=== PATIENT | female | born 1955 | race Caucasian/White ===

== ENCOUNTER 2020-08-14 10:38 | Inpatient (IN) | payer MEDICARE, OTHER ==
[~2020-08-14] VITALS: Ht 167.6 cm; Wt 101.9 kg
[2020-08-14] MEDS ORDERED: ACETAMINOPHEN 325 MG TAB PO ONE ×2 (11:26→11:30)
[2020-08-14] MEDS ORDERED: SODIUM CHLORIDE 0.9% 1,000 ML IV ONE (11:30)
[2020-08-14 11:36] LABS: Basophils # (auto) 0.1 10 ^3/uL (0-0.2); Eosinophils # (auto) 0 10 ^3/uL (0-0.8); Lymphocytes # (auto) 0.8 10 ^3/uL (0.4-5.4)
[2020-08-14 11:37] LABS: Basophils % (auto) 0.5 % (0.0-2.0); Eosinophils % (auto) 0.2 % (0.0-7.0); Hematocrit 41.9 % (36.0-46.0); Lymphocytes % (auto) 4.7 % (10.0-50.0); Mean Corpuscular Hemoglobin 26.3 pg (28.0-32.0); Mean Corpuscular Hgb Conc. 33.3 g/dL (32.0-36.0); Mean Corpuscular Volume 78.8 fL (80.0-100.0); Monocytes # (auto) 0.6 10 ^3/uL (0-1.3); Monocytes % (auto) 3.6 % (0.0-12.0); Neutrophils # (auto) 14.5 10 ^3/uL (1.6-8.6); Nucleated Red Blood Cells % 0.1 %; Platelet Count (auto) 346 10^3/uL (140-450); Red Blood Cells 5.32 10^6/uL (4.0-5.20); Red Cell Distribution Width 16.2 % (11.8-14.3); White Blood Cell 15.9 10^3/uL (4.4-10.8)
[2020-08-14 11:42] LABS: INR 0.97 (0.9-1.15); Partial Thromboplastin Time 21.9 sec (23.0-31.2)
[2020-08-14 11:43] LABS: Albumin 3.1 g/dL (3.4-5.0); Anion Gap 8 (5-15); Blood Urea Nitrogen 21 mg/dL (7-18); Calcium 8.6 mg/dL (8.5-10.1); Carbon Dioxide 25 mmol/L (21-32); Chloride 104 mmol/L (98-107); Glucose 174 mg/dL (74-106); Potassium 3.9 mmol/L (3.5-5.1); Sodium 137 mmol/L (136-145)
[2020-08-14] MEDS ORDERED: SODIUM CHLORIDE 0.9% 1,000 ML IVB ONE (11:45)
[2020-08-14 11:48] LABS: Lactic Acid w/Reflex 2.7 mmol/L (0.4-2.0)
[2020-08-14 11:48] LABS: Alanine Aminotransferase 42 U/L (13-56); Alkaline Phosphatase 143 U/L (45-117); Aspartate Aminotransferase 61 U/L (15-37); BUN/Creatinine Ratio 18.3; Bilirubin, Total 0.4 mg/dL (0.2-1.0); GFR African American 61 mL/min; GFR Non-African American 50 mL/min; Total Protein 7.4 g/dL (6.4-8.2)
[2020-08-14 12:14] LABS: Urine Bacteria NONE SEEN /hpf (None Seen); Urine Blood 3+ /uL (Negative); Urine Mucus FEW (None Seen); Urine Specific Gravity 1.015 (1.001-1.035); Urine WBC 552 /hpf (0 - 5); Urine WBC Clumps PRESENT /hpf (None Seen)
[2020-08-14] MEDS ORDERED: cefTRIAXone 1GM/50ML D5W 50 ML IV ONE (13:30)
[2020-08-14] MEDS ORDERED: DOCUSATE SOD 100 MG CAP PO PRN (14:45)
[2020-08-14] MEDS ORDERED: MORPHINE SULF INJ 2 MG/ML SYRINGE 1ML IV PRN ×2 (14:45)
[2020-08-14] MEDS ORDERED: IPRATROPIUM BROM 0.5 MG/2.5ML INH SOL NEB PRN (14:45)
[2020-08-14] MEDS ORDERED: ALBUTEROL SULF 2.5 MG/0.5ML(0.5%) NEB SOLN NEB PRN (14:45)
[2020-08-14] MEDS ORDERED: NITROGLYCERIN 0.4 MG SL TAB SL PRN (14:45)
[2020-08-14] MEDS ORDERED: IOHEXOL 300 MG/ML 100ML BOTTLE IJ ONE (14:51)
[2020-08-14 15:02] VITALS: BP 149/68
[2020-08-14] MEDS: SODIUM CHLORIDE 0.9% 1,000 ML IV SCH ×2 (16:03→22:45)
[2020-08-14] MEDS: ONDANSETRON HCL 4 MG/2 ML VIAL IV PRN (17:22)
[2020-08-14 22:36] VITALS: BP 140/73
[2020-08-14] MEDS: metroNIDAZOLE 500MG/100ML 100 ML IV SCH (23:24)
[2020-08-14] MEDS: HYDROcodone-ACET 5/325MG TAB PO PRN (23:33)
[2020-08-15] MEDS ORDERED: VANCOMYCIN 1GM/250ML 250 ML IV ONE (02:45)
[2020-08-15] MEDS ORDERED: VANCOMYCIN PER PHARMACY 0 MG IV SCH (03:00)
[2020-08-15 05:00] VITALS: BP 137/67
[2020-08-15] MEDS: metroNIDAZOLE 500MG/100ML 100 ML IV SCH ×3 (05:42→21:41)
[2020-08-15] MEDS: HYDROcodone-ACET 5/325MG TAB PO PRN ×3 (05:46→18:42)
[2020-08-15] MEDS: SODIUM CHLORIDE 0.9% 1,000 ML IV SCH ×3 (05:51→23:42)
[2020-08-15 07:06] LABS: Basophils # (auto) 0 10 ^3/uL (0-0.2); Basophils % (auto) 0.1 % (0.0-2.0); Eosinophils # (auto) 0 10 ^3/uL (0-0.8); Hemoglobin 12.2 g/dL (12.2-16.2); Monocytes # (auto) 0.8 10 ^3/uL (0-1.3)
[2020-08-15 07:09] LABS: Hematocrit 37.7 % (36.0-46.0); Lymphocytes % (auto) 5.1 % (10.0-50.0); Mean Corpuscular Hgb Conc. 32.3 g/dL (32.0-36.0); Mean Corpuscular Volume 80.5 fL (80.0-100.0); Neutrophils # (auto) 18.4 10 ^3/uL (1.6-8.6); Neutrophils % (auto) 90.8 % (37.0-80.0); Platelet Count (auto) 247 10^3/uL (140-450); Red Blood Cells 4.68 10^6/uL (4.0-5.20); Red Cell Distribution Width 16.2 % (11.8-14.3); White Blood Cell 20.2 10^3/uL (4.4-10.8)
[2020-08-15 07:30] LABS: BUN/Creatinine Ratio 19.8; Calcium 8.1 mg/dL (8.5-10.1); Potassium 3.5 mmol/L (3.5-5.1)
[2020-08-15 09:00] VITALS: BP 119/52
[2020-08-15] MEDS: levoFLOXacin 500MG 100 ML IV SCH (09:25)
[2020-08-15] MEDS: ENOXAPARIN SOD 40 MG/0.4 ML SYRINGE SC SCH (09:25)
[2020-08-15] MEDS: ONDANSETRON HCL 4 MG/2 ML VIAL IV PRN (09:25)
[2020-08-15] MEDS ORDERED: SERT50TA PO (11:54)
[2020-08-15] MEDS ORDERED: ROSU20TA14 PO (11:54)
[2020-08-15] MEDS ORDERED: BACL20TA PO (11:54)
[2020-08-15] MEDS ORDERED: EVER10TA PO (11:54)
[2020-08-15] MEDS ORDERED: GABA600T PO (11:54)
[2020-08-15] MEDS ORDERED: POTA10TA51 PO (11:54)
[2020-08-15] MEDS ORDERED: LISI-285 PO (11:54)
[2020-08-15] MEDS ORDERED: NORT25CA PO (11:54)
[2020-08-15] MEDS ORDERED: OMEP20TA PO (11:54)
[2020-08-15 13:00] VITALS: BP 170/84
[2020-08-15] MEDS: ACETAMINOPHEN 500 MG TAB PO PRN (13:04)
[2020-08-15] MEDS: FAMOTIDINE 20 MG TAB PO SCH (13:04)
[2020-08-15 14:29] VITALS: BP_SYST 128; BP_SYST 141; BP_DIAS 57; BP_DIAS 65
[2020-08-15] MEDS: VANCOMYCIN 1GM/250ML 250 ML IV SCH (15:16)
[2020-08-15] MEDS: SERTRALINE HCL 50 MG TAB PO SCH (15:16)
[2020-08-15] MEDS: GABAPENTIN 300 MG CAP PO SCH ×2 (15:17→21:41)
[2020-08-15 17:00] VITALS: BP 147/54
[2020-08-15] MEDS: BACLOFEN 10 MG TAB PO SCH (21:41)
[2020-08-15 22:00] VITALS: BP 159/56
[2020-08-15] MEDS ORDERED: NORTRIPTYLINE HCL 25 MG CAP PO SCH (22:00)
[2020-08-16] MEDS: VANCOMYCIN 1GM/250ML 250 ML IV SCH (01:53)
[2020-08-16] MEDS: HYDROcodone-ACET 5/325MG TAB PO PRN ×3 (04:51→19:17)
[2020-08-16 05:00] VITALS: BP 148/58
[2020-08-16 05:30] LABS: Basophils # (auto) 0 10 ^3/uL (0-0.2); Basophils % (auto) 0.1 % (0.0-2.0); Eosinophils # (auto) 0 10 ^3/uL (0-0.8); Eosinophils % (auto) 0.1 % (0.0-7.0); Hematocrit 35.3 % (36.0-46.0); Hemoglobin 12.1 g/dL (12.2-16.2); Lymphocytes # (auto) 0.6 10 ^3/uL (0.4-5.4); Mean Corpuscular Hgb Conc. 34.2 g/dL (32.0-36.0); Mean Corpuscular Volume 79.1 fL (80.0-100.0); Monocytes # (auto) 0.4 10 ^3/uL (0-1.3); Monocytes % (auto) 3.4 % (0.0-12.0); Neutrophils # (auto) 11.2 10 ^3/uL (1.6-8.6); Neutrophils % (auto) 91.4 % (37.0-80.0); Platelet Count (auto) 176 10^3/uL (140-450); Red Blood Cells 4.47 10^6/uL (4.0-5.20); Red Cell Distribution Width 16.2 % (11.8-14.3); White Blood Cell 12.2 10^3/uL (4.4-10.8)
[2020-08-16] MEDS: metroNIDAZOLE 500MG/100ML 100 ML IV SCH ×2 (05:33→16:05)
[2020-08-16] MEDS: GABAPENTIN 300 MG CAP PO SCH ×2 (05:34→16:05)
[2020-08-16] MEDS: BACLOFEN 10 MG TAB PO SCH ×2 (05:34→16:05)
[2020-08-16 05:56] LABS: Potassium 3.3 mmol/L (3.5-5.1)
[2020-08-16 06:00] LABS: BUN/Creatinine Ratio 19.3; Calcium 8.2 mg/dL (8.5-10.1)
[2020-08-16] MEDS: SODIUM CHLORIDE 0.9% 1,000 ML IV SCH (06:20)
[2020-08-16 08:39] VITALS: BP 145/75
[2020-08-16] MEDS ORDERED: SODIUM CHLORIDE 0.9% 1,000 ML IV SCH (09:45)
[2020-08-16] MEDS ORDERED: POTASSIUM EFFERVESENT TAB 25 MEQ PO ONE (09:45)
[2020-08-16] MEDS: ENOXAPARIN SOD 40 MG/0.4 ML SYRINGE SC SCH (10:00)
[2020-08-16] MEDS: FAMOTIDINE 20 MG TAB PO SCH (10:00)
[2020-08-16] MEDS ORDERED: EVEROLIMUS PO SCH (10:00)
[2020-08-16] MEDS: levoFLOXacin 500MG 100 ML IV SCH (10:38)
[2020-08-16] MEDS: SERTRALINE HCL 50 MG TAB PO SCH (10:39)
[2020-08-16] MEDS ORDERED: METOPROLOL TARTRATE 25 MG TAB PO ONE (11:15)
[2020-08-16] MEDS: ACETAMINOPHEN 500 MG TAB PO PRN (12:18)
[2020-08-16 12:34] VITALS: BP_SYST 157; BP_DIAS 82; BP_DIAS 84
[2020-08-16] MEDS ORDERED: fentaNYL CITRATE 100 MCG/2 ML VL ONE (14:18)
[2020-08-16] MEDS ORDERED: MIDAZOLAM HCL 1MG/1ML-2 ML VIAL ONE (14:18)
[2020-08-16] MEDS ORDERED: IODIXANOL 320MG/ML 100ML BTL IV ONE (14:36)
[2020-08-16] MEDS ORDERED: LIDOCAINE 2%HCL (LOCAL ANESTH.) INJ 20ML MDV ONE (14:36)
[2020-08-16 15:15] VITALS: BP 123/77
[2020-08-16 16:52] VITALS: BP 124/67
[2020-08-16] MEDS ORDERED: METOPROLOL TARTRATE 25 MG TAB PO SCH (22:00)
== END 2020-08-16 20:18 | disposition short-term general hospital (02) | DRG 871 ==
LOC: ER 10:38 → EDBD 10:38 → TELE 14:37 → TELE-CENTR 22:37
PROVIDERS: ADMIT Nurse Practitioner Acute Care; ATTEND Internal Medicine
PROC: BT42ZZZ Ultrasonography of Left Kidney (ICD-10-PCS; principal; 2020-08-16)
PROC: BT121ZZ Fluoroscopy of Left Kidney using Low Osmolar Contrast (ICD-10-PCS; 2020-08-16)
PROC: 0T9130Z Drainage of Left Kidney with Drainage Device, Percutaneous Approach (ICD-10-PCS; 2020-08-16)
DX: A41.50 Gram-negative sepsis, unspecified (principal); G93.41 Metabolic encephalopathy; N17.0 Acute kidney failure with tubular necrosis; E44.1 Mild protein-calorie malnutrition; N13.6 Pyonephrosis; R65.20 Severe sepsis without septic shock; E66.9 Obesity, unspecified; I10 Essential (primary) hypertension; Z20.822 Contact with and (suspected) exposure to COVID-19; G62.9 Polyneuropathy, unspecified; Z85.038 Personal history of other malignant neoplasm of large intestine; Z87.891 Personal history of nicotine dependence; Z68.37 Body mass index [BMI] 37.0-37.9, adult
CPT/HCPCS: 36415; 50430; 51702; 70450; 71045; 74177; 74425; 76000; 76942; 80048; 80053; 81001; 82270; 83605; 83735; 84484; 85025; 85379; 85610; 85730; 87040; 87077; 87086; 87088; 87186; 87426; 93005; 93970; 96361; 96365; 96375; 99152; 99291; C1729; G0378; J0696; J1956; J2250; J2405; J3490; Q9967

== ENCOUNTER 2021-08-02 07:34 | Emergency (ER) | payer MEDICARE, OTHER ==
[~2021-08-02] VITALS: Ht 167.6 cm; Wt 106.6 kg
[~2021-08-02 07:34] MED LIST: BACL20TA PO; EVER10TA PO; GABA600T PO; LISI-285 PO; NORT25CA PO; OMEP20TA PO; POTA10TA51 PO; ROSU20TA14 PO; SERT50TA PO
[2021-08-02] MEDS ORDERED: diphenhdrAMINE HCL 50 MG/1 ML VL IV ONE (07:45)
[2021-08-02] MEDS ORDERED: methylPREDNISolone SOD SUCC 125 MG/2 ML VL IV ONE ×2 (07:45→10:00)
[2021-08-02] MEDS ORDERED: EPINEPHrine HCL 1 MG/1 ML AMP IM ONE ×2 (07:45→12:00)
[2021-08-02 08:34] LABS: Alcohol, Urine < 3.0 mg/dL (0-10); Amphetamine Screen, Urine NEGATIVE (NEGATIVE); Barbiturate Scree,Urine NEGATIVE (NEGATIVE); Benzodiazephine Screen, Urine NEGATIVE (NEGATIVE); Cannabinoid Screen, Urine NEGATIVE (NEGATIVE); Cocaine Screen, Urine NEGATIVE (NEGATIVE); Opiate Scree,Urine POSITIVE (NEGATIVE); Phencyclidine Screen, Urine NEGATIVE (NEGATIVE)
[2021-08-02 10:09] LABS: Basophils # (auto) 0 10 ^3/uL (0-0.2); Basophils % (auto) 0.4 % (0.0-2.0); Eosinophils # (auto) 0.1 10 ^3/uL (0-0.8); Monocytes # (auto) 0.2 10 ^3/uL (0-1.3); Monocytes % (auto) 1.7 % (0.0-12.0); Red Cell Distribution Width 17.2 % (11.8-14.3)
[2021-08-02 10:10] LABS: Eosinophils % (auto) 0.6 % (0.0-7.0); Hematocrit 33.3 % (36.0-46.0); Hemoglobin 10.7 g/dL (12.2-16.2); Lymphocytes # (auto) 1.5 10 ^3/uL (0.4-5.4); Mean Corpuscular Hgb Conc. 32.2 g/dL (32.0-36.0); Mean Corpuscular Volume 77.6 fL (80.0-100.0); Neutrophils # (auto) 8.7 10 ^3/uL (1.6-8.6); Neutrophils % (auto) 83.3 % (37.0-80.0); Red Blood Cells 4.29 10^6/uL (4.0-5.20); White Blood Cell 10.5 10^3/uL (4.4-10.8)
[2021-08-02 10:27] LABS: Albumin 3.2 g/dL (3.4-5.0); Calcium 9.2 mg/dL (8.5-10.1); Potassium 3.7 mmol/L (3.5-5.1)
[2021-08-02 10:31] LABS: BUN/Creatinine Ratio 18.2
[2021-08-02 10:33] LABS: Bilirubin, Total 0.2 mg/dL (0.2-1.0); Total Protein 7.3 g/dL (6.4-8.2)
[2021-08-02 11:58] VITALS: BP 150/71
== END 2021-08-02 12:25 | disposition short-term general hospital (02) ==
LOC: ER 07:34 → EDBD 07:34 → ER 12:25
DX: T78.3XXA Angioneurotic edema, initial encounter (principal); I10 Essential (primary) hypertension; Z90.49 Acquired absence of other specified parts of digestive tract; Z79.899 Other long term (current) drug therapy; Z88.1 Allergy status to other antibiotic agents; Z88.8 Allergy status to other drugs, medicaments and biological substances; Z20.822 Contact with and (suspected) exposure to COVID-19
CPT/HCPCS: 36415; 71046; 80053; 80307; 85025; 87426; 96372; 96374; 96375; 96376; 99285; J0171; J1200; J2930

== ENCOUNTER 2023-02-04 14:56 | Emergency (ER) | payer OTHER ==
[~2023-02-04] VITALS: Ht 172.7 cm; Wt 100.0 kg
[2023-02-04] MEDS ORDERED: levoFLOXacin 500MG 100 ML IV ONE (15:15)
[2023-02-04] MEDS ORDERED: SODIUM CHLORIDE 0.9% 1,000 ML IV ONE ×2 (15:15)
[2023-02-04 16:11] LABS: Basophils # (auto) 0 10 ^3/uL (0-0.2); Basophils % (auto) 0.4 % (0.0-2.0); Eosinophils # (auto) 0 10 ^3/uL (0-0.8); Eosinophils % (auto) 0.5 % (0.0-7.0); Hematocrit 40.4 % (36.0-46.0); Hemoglobin 13.3 g/dL (12.2-16.2); Lymphocytes # (auto) 1.1 10 ^3/uL (0.4-5.4); Lymphocytes % (auto) 10.6 % (10.0-50.0); Mean Corpuscular Hemoglobin 27.2 pg (28.0-32.0); Mean Corpuscular Hgb Conc. 32.8 g/dL (32.0-36.0); Mean Corpuscular Volume 82.9 fL (80.0-100.0); Monocytes # (auto) 0.6 10 ^3/uL (0-1.3); Monocytes % (auto) 6.2 % (0.0-12.0); Neutrophils # (auto) 8.2 10 ^3/uL (1.6-8.6); Neutrophils % (auto) 82.3 % (37.0-80.0); Nucleated Red Blood Cells % 0.1 %; Red Blood Cells 4.88 10^6/uL (4.0-5.20); Red Cell Distribution Width 17.7 % (11.8-14.3)
[2023-02-04 16:34] LABS: Alanine Aminotransferase 23 U/L (7-40); Alkaline Phosphatase 123 U/L (46-116); Anion Gap 8 (5-15); Aspartate Aminotransferase 37 U/L (13-40); BUN/Creatinine Ratio 15.1 (10.0-20.0); Blood Urea Nitrogen 13 mg/dL (9-23); Calcium 9.3 mg/dL (8.5-10.1); Carbon Dioxide 30 mmol/L (20-30); Chloride 102 mmol/L (98-107); Glucose 107 mg/dL (74-106); Potassium 4.4 mmol/L (3.5-5.1); Sodium 140 mmol/L (136-145)
[2023-02-04 16:35] LABS: Albumin 4.2 g/dL (3.2-4.8); Bilirubin, Total 0.4 mg/dL (0.2-1.0); Total Protein 6.7 g/dL (5.7-8.2)
[2023-02-04] MEDS ORDERED: FUROSEMIDE 40 MG/4 ML VIAL IV ONE (17:00)
[2023-02-04 17:26] LABS: Urine Bacteria NONE SEEN /hpf (None Seen); Urine Blood 2+ /uL (Negative); Urine Clarity Clear (Clear); Urine Color Yellow (Yellow); Urine Protein, UAD 1+ (Negative); Urine Specific Gravity 1.017 (1.001-1.035); Urine Urobilinogen Normal (Negative); Urine WBC 7 /hpf (0 - 5)
[2023-02-04] MEDS ORDERED: ACETAMINOPHEN 325 MG TAB PO ONE (19:00)
[2023-02-04 20:00] VITALS: PULSE 84; RESP 18; O2SAT 95
[2023-02-04 21:05] VITALS: BP 126/48; PULSE 78; RESP 16; TEMP 99.2; O2SAT 96
== END 2023-02-04 21:17 | disposition short-term general hospital (02) ==
LOC: EDUNIT# 14:56 → EDBD 14:56 → ER 14:56
DX: A41.9 Sepsis, unspecified organism (principal); J18.9 Pneumonia, unspecified organism; I13.0 Hypertensive heart and chronic kidney disease with heart failure and stage 1 through stage 4 chronic kidney disease, or unspecified chronic kidney disease; N18.9 Chronic kidney disease, unspecified; I50.9 Heart failure, unspecified; R41.82 Altered mental status, unspecified; Z90.49 Acquired absence of other specified parts of digestive tract; Z88.1 Allergy status to other antibiotic agents
CPT/HCPCS: 36415; 70450; 71045; 80053; 81001; 83605; 83880; 84484; 85025; 87040; 87086; 93005; 96365; 96366; 96375; 99285; J1940; J1956; J7030